=== PATIENT | female | born 1970 | race Hispanic/Latino ===

== ENCOUNTER 2023-12-14 08:25 | Outpatient (CLI) | payer BC ==
[2023-12-14] MEDS ORDERED: Iopamidol 370 76% 100 ML VIAL ONE (09:08)
== END 2023-12-14 08:26 | disposition home or self-care (01) ==
LOC: CT 08:25
PROVIDERS: ATTEND Nurse Practitioner Family
DX: R10.32 Left lower quadrant pain (principal); K76.0 Fatty (change of) liver, not elsewhere classified
CPT/HCPCS: 74177; Q9967